=== PATIENT | male | born 1990 | race African-American/Black ===

== ENCOUNTER 2019-09-26 12:47 | Emergency (ER) | payer MEDICAID ==
[~2019-09-26] VITALS: Ht 190.5 cm; Wt 113.6 kg
[2019-09-26] MEDS: KETOROLAC TROMETHAMINE 30 MG/ML VIAL IM ONE (14:22)
[2019-09-26] MEDS: BENZOCAINE/MENTHOL LOZENGE PO ONE (14:22)
[2019-09-26] MEDS: DEXAMETHASONE 4 MG TABLET PO ONE (14:34)
[2019-09-26] MEDS: NEOMYCIN/POLYMYXIN B/HYDROCORT 10 ML OTIC SOLUTION AS ONE (14:45)
[2019-09-26] MEDS: SODIUM CHLORIDE 0.65% 44 ML NASAL SPRAY NASAL ONE (14:46)
[2019-09-26 15:11] VITALS: BP 161/88
== END 2019-09-26 15:46 | disposition home or self-care (01) ==
LOC: EMS 12:48
DX: H60.92 Unspecified otitis externa, left ear (principal); J02.8 Acute pharyngitis due to other specified organisms; B97.89 Other viral agents as the cause of diseases classified elsewhere; F17.210 Nicotine dependence, cigarettes, uncomplicated
CPT/HCPCS: 87430; 96372; 99284; 99406; J1885; J8540